=== PATIENT | male | born 2005 | race Two or more races ===

== ENCOUNTER 2025-01-04 18:42 | Emergency (ER) | payer MEDICAID, SELFPAY ==
[2025-01-04 19:04] VITALS: BP 149/92; PULSE 114; RESP 18; TEMP 38.1; O2SAT 97; BMI 34.9
[2025-01-04 19:44] VITALS: TEMP 38.1
[2025-01-04] MEDS: ACETAMINOPHEN 500 MG TABLET 1000 MG PO (19:44)
[2025-01-04 21:36] LABS: Strep A Rapid Negative (Negative)
[2025-01-04 21:45] VITALS: BP 128/81; PULSE 93; RESP 17; TEMP 36.7; O2SAT 97
[2025-01-04] MEDS: DEXAMETHASONE SOD PHOS INJ 10 MG/ML VIAL PO (22:07)
--- NOTE | 2025-01-04 22:47 | PD.EDURI ---
Upper Respiratory Inf. RME/HPI General Chief Complaint: Dental/Oral/Throat Stated Complaint: LEFT THROAT SWOLLEN X YESTERDAY; CAN'T EAT/SWALLOW Time Seen by Provider: 01/04/25 19:10 Arrival date/time: 01/04/25 18:42 19M with no significant PMH presents to ED with 2 days of cough and sore throat. Limitations: no limitations Related Data Previous Rx's ?Medication ?Instructions ?Recorded ibuprofen 600 mg tablet 600 mg PO Q6H #30 tabs 08/19/19 Allergies Allergy/AdvReac Type Severity Reaction Status Date / Time No Known Allergies Allergy Verified 01/04/25 18:46 Review of Systems Review of Systems Systems Reviewed: All systems reviewed, normal except as documented Constitutional Constitutional: Reports system reviewed and no additional complaints, except as documented, Denies fever(s) and Denies headache(s) ENT Ears, Nose, Mouth, and Throat: Reports as per HPI, Denies disequilibrium, Denies headache(s) and Reports sore throat Cardiovascular Cardiovascular: Reports system reviewed and no additional complaints, except as documented, Denies chest pain and Denies dyspnea Respiratory Respiratory: Reports system reviewed and no additional complaints, except as documented, Reports as per HPI, Reports cough and Denies dyspnea Gastrointestinal Gastrointestinal: Reports system reviewed and no additional complaints, except as documented, Denies abdominal pain, Denies nausea and Denies vomiting Neurologic Neurologic: Reports system reviewed and no additional complaints, except as documented, Denies confusion, Denies disequilibrium and Denies headache(s) Psychiatric Psychiatric: Denies confusion Past Medical History Past Medical History CARDIAC: Negative Congestive Heart Failure RESPIRATORY: Negative Chronic Obstructive Pulmonary Disease (COPD) GENITOURINARY: Negative Renal Disease ENDOCRINE: Negative Diabetes Mellitus Type 1 or Diabetes Mellitus Type 2 PSYCHO/SOCIAL: Positive Attention Deficit Hyperactivity Disorder Social History SMOKING STATUS: Never smoker ED Exam General Limitations: Present no limitations General appearance: Present alert and in no apparent distress Head Head exam: Present atraumatic Eye Eye exam: Present normal appearance, PERRL and EOMI ENT ENT exam: Present normal exam, normal oropharynx and mucous membranes moist Neck Neck exam: Present normal inspection, full ROM and trachea midline Chest Chest inspection: Present normal inspection and symmetric chest wall rise Respiratory Respiratory exam: Present normal lung sounds bilaterally Cardiovascular Cardiovascular exam: Present regular rate, normal rhythm and normal heart sounds Abdominal Exam Abdominal exam: Present soft and normal bowel sounds Extremities Exam Extremities exam: Present normal inspection and full ROM Back Exam Back exam: Present normal inspection and full ROM Neurological Exam Neurological exam: Present alert, oriented X3 and CN II-XII intact Psychiatric Psychiatric exam: Present normal affect and normal mood Skin Skin exam: Present warm, dry, intact and normal color Course Quality Measures none Orders Category Date Time Status Bedside Influenza A&B Antigen Test NOW Care 01/04/25 21:54 Completed Strep A Rapid Stat Lab 01/04/25 20:06 Completed Acetaminophen Tab [Tylenol ES Tab] Med 01/04/25 19:10 Discontinued 1,000 mg PO X1 ONE Dexamethasone Inj [Decadron Inj] Med 01/04/25 22:00 Discontinued 10 mg PO X1 ONE Vital Signs Vital signs: Vital Signs Temperature 100.6 F H 01/04/25 19:04 Pulse Rate 114 H 01/04/25 19:04 Respiratory Rate 18 01/04/25 19:04 Blood Pressure 149/92 H 01/04/25 19:04 Pulse Oximetry (%) 97 01/04/25 19:04 Oxygen Delivery Method Room Air 01/04/25 19:04 O2 at 97% on RA and WNLs Upper Respiratory Infection MDM Narrative MDM Narrative:: 19M with no significant PMH presents to ED with 2 days of cough and sore throat. Physical exam reveals red and swollen oropharynx. Patient is mildly febrile, but does not appear toxic. Flu A+. Patient data External records reviewed:: [facility] previous records Clinical information provided by:: patient Social determinants that could affect healthcare access:: none Patient has the following chronic illnesses:: none How is presenting disease/condition affected by chronic disease/condition?: no chronic disease Evaluation data The following diagnostics were reviewed and interpreted by me:: lab results Lab and/or radiology exams considered but not ordered:: ordered Interpretation Summary: above Medications / Prescriptions Medications or Prescriptions considered but not ordered:: ordered Medication administrations:: Medication Administration History Discontinued Medications Acetaminophen (Acetaminophen 500 Mg Tablet) 1,000 mg PO X1 ONE Stop: 01/04/25 19:11 Last Admin: 01/04/25 19:44 Dose: 1,000 mg Documented By: OA Dexamethasone Sodium Phosphate (Dexamethasone Sod Phos Inj 10 Mg/Ml Vial) 10 mg PO X1 ONE Stop: 01/04/25 22:01 Last Admin: 01/04/25 22:07 Dose: 10 mg Documented By: OA above Consultations Consultation(s) initiated? (list below): No Diagnosis Upper Respiratory Differential Diagnosis: upper respiratory infection, croup, otitis media, sinusitis, viral infection, bronchitis, influenza and pharyngitis Most likely diagnosis given after review of the tests above:: flu A Admission Indicated Admission indicated?: not indicated Admission Request Was there a request for admission?: No Disposition Plan Disposition Plan: Discharge Discharge Attestation Discharge Attestation: The patient and all family members were given an opportunity to ask questions and understood the discharge instructions. Discharge instructions specifically effects, indications for sooner follow up or return to the emergency department, and the expected course of current diagnosis. Patient condition: Stable Discharge Plan Plan Patient Disposition: HOME (Self Care) Disposition Comment: Stable Prescriptions/Referrals Prescriptions/Med Rec: No Action ibuprofen 600 mg tablet 600 mg PO Q6H Qty: 30 0RF Referrals: No Primary/Family,Physician [Primary Care Provider] - In 1 week Problem List Clinical Impression: Influenza A Patient/Caregiver Discharge Instructions Education Materials: ED Influenza (Adult) Additional Instructions: Please follow-up with PCP within 24-48 hours and return immediately if symptoms worsen. Ibuprofen/Tylenol can be used simultaneously for greater fever/pain control. Benadryl is good for cough, congestion, and sleep. Print Language: Palestinian Stand Alone Forms: Patient Portal Info Letter JUSTIN/YURY Supervising Physician JUSTIN/YURY Supervising Physician: Dr. Bonner
== END 2025-01-04 22:11 | disposition home or self-care (01) ==
PROVIDERS: Physician Assistant; Emergency Provider Emergency Medicine
DX: J10.1 Influenza due to other identified influenza virus with other respiratory manifestations (principal)
CPT/HCPCS: 87400; 87651; 99283; J1100; A9270